=== PATIENT | female | born 1940 | race Caucasian/White ===

== ENCOUNTER 2017-04-10 13:18 | Outpatient (CLI) | payer MEDICARE, OTHER | END 2017-04-10 13:19 | disposition home or self-care (01) | LOC: RT 13:18 | PROVIDERS: ATTEND Internal Medicine | DX: R09.02 Hypoxemia (principal) | CPT/HCPCS: 94010; 94729 ==

== ENCOUNTER 2017-05-29 10:54 | Outpatient (CLI) | payer MEDICARE, OTHER ==
--- NOTE | 2017-05-29 14:12 | XRAY Report ---
TWO VIEW CHEST: 05/29/2017 CLINICAL INDICATION: Cough, wheezing. FINDINGS: Frontal and lateral views of the chest demonstrate a normal cardiac silhouette. There is a left basilar infiltrate present. No effusion or pneumothorax is evident. IMPRESSION: LEFT BASILAR INFILTRATE. TD: 05/29/2017 14:11
== END 2017-05-29 10:55 | disposition home or self-care (01) ==
LOC: DI.S 10:54
PROVIDERS: ATTEND Nurse Practitioner Family
DX: R91.8 Other nonspecific abnormal finding of lung field (principal)
CPT/HCPCS: 71046

== ENCOUNTER 2017-06-19 10:16 | Outpatient (CLI) | payer MEDICARE, OTHER ==
--- NOTE | 2017-06-19 12:51 | XRAY Report ---
TWO VIEW CHEST: 06/19/2017 CLINICAL INDICATION: Followup infiltrate. COMPARISON: 05/29/2017. FINDINGS: Frontal and lateral views of the chest demonstrate a normal cardiac silhouette. Left basilar airspace disease has resolved, with minimal linear atelectasis or scarring now present. No effusion or pneumothorax is seen. IMPRESSION: RESIDUAL LINEAR ATELECTASIS OR SCARRING AT THE LEFT BASE. RESOLUTION OF PREVIOUSLY SEEN INFILTRATE. TD: 06/19/2017 12:51
== END 2017-06-19 10:17 | disposition home or self-care (01) ==
LOC: DI.S 10:16
PROVIDERS: ATTEND Nurse Practitioner Family
DX: R05 Cough (principal); R06.02 Shortness of breath
CPT/HCPCS: 71046

== ENCOUNTER 2018-06-21 11:19 | Outpatient (CLI) | payer MEDICARE, OTHER | END 2018-06-21 11:20 | disposition home or self-care (01) | LOC: DI 11:19 | PROVIDERS: ATTEND Internal Medicine | DX: Z12.31 Encounter for screening mammogram for malignant neoplasm of breast (principal) | CPT/HCPCS: 77063; 77067 ==

== ENCOUNTER 2019-04-07 08:23 | Outpatient (CLI) | payer MEDICARE, OTHER ==
[2019-04-07 10:29] LABS: ALBUMIN 4.3 g/dL (3.2-5.5); ALBUMIN/GLOBULIN RATIO 1.4 (1.0-2.2); ALKALINE PHOSPHATASE 51 IU/L (42-121); ALT ALANINE AMINOTRANSFERASE 21 IU/L (10-60); AST ASPARTATE AMINOTRANSFERASE 25 IU/L (10-42); BILIRUBIN,TOTAL 0.9 mg/dL (0.2-1.0); BUN - BLOOD UREA NITROGEN 18 mg/dL (6-20); CALCIUM 9.6 mg/dL (8.5-10.3); CARBON DIOXIDE - CO2 29 mmol/L (21-32); CHLORIDE 99 mmol/L (101-111); CHOL/HDL RATIO 4.2 (<4.4); CHOLESTEROL 269 mg/dL; CREATININE 0.8 mg/dL (0.4-1.0); GFR - MDRD 70 (>89); GLUCOSE 96 mg/dL (70-100); HDL CHOLESTEROL 64 mg/dL; LDL CHOLESTEROL,CALCULATED 180 mg/dL; LDL CHOLESTEROL,DIRECT 183 mg/dL; LDL/HDL RATIO 2.8 (<4.4); SODIUM 138 mmol/L (135-145); TOTAL PROTEIN 7.3 g/dL (6.7-8.2); VLDL CHOLESTEROL 25 mg/dL
== END 2019-04-07 08:24 | disposition home or self-care (01) ==
LOC: LAB.S 08:23
PROVIDERS: ATTEND Registered Nurse
DX: I10 Essential (primary) hypertension (principal); E78.00 Pure hypercholesterolemia, unspecified
CPT/HCPCS: 36415; 80053; 80061; 83721

== ENCOUNTER 2019-09-21 14:58 | Outpatient (CLI) | payer MEDICARE, OTHER ==
--- NOTE | 2019-09-22 11:39 | Mammography Report ---
BILATERAL DIGITAL SCREENING MAMMOGRAM 3D/2D: 09/21/2019 CLINICAL: Routine screening. Comparison is made to exams dated: 06/21/2018 mammogram and 01/15/2015 mammogram - [facility]. There are scattered fibroglandular elements in both breasts. No significant masses, calcifications, or other findings are seen in either breast. There has been no significant interval change. IMPRESSION: NEGATIVE There is no mammographic evidence of malignancy. A 1 year screening mammogram is recommended. This exam was interpreted at Station ID: [id number]. NOTE: For mammograms, a report in lay terms will be sent to the patient. Approximately 15% of breast malignancies will not be visualized mammographically. In the management of a palpable breast mass, a negative mammogram must not discourage biopsy of a clinically suspicious lesion. Electronically Signed By: Usman Kenyon M.D. aty/penrad:09/21/2019 18:02:50 ACR BI-RADS Category 1: Negative 3341F PARENCHYMAL PATTERN: (A) - The breast(s) demonstrate(s) scattered fibroglandular densities. BI-RADS CATEGORY: (1) - 1 RECOMMENDATION: (ANNUAL) - Recommend routine annual screening mammography. [id number] 1 year screening LATERALITY: (B)
== END 2019-09-21 14:59 | disposition home or self-care (01) ==
LOC: DI 14:58
DX: Z12.31 Encounter for screening mammogram for malignant neoplasm of breast (principal)
CPT/HCPCS: 77063; 77067

== ENCOUNTER 2019-10-20 09:33 | Day surgery (SDC) | payer MEDICARE, OTHER ==
[2019-10-20] MEDS ORDERED: LACTATED RINGERS 1,000 ML IV ONE (09:39)
[2019-10-20] MEDS ORDERED: fentaNYL 250 MCG/5 ML VIAL IVP ONE (11:06)
[2019-10-20] MEDS ORDERED: ONDANSETRON 4 MG/2 ML VIAL IVP ONE (11:06)
[2019-10-20] MEDS ORDERED: MIDAZOLAM 2 MG/2 ML VIAL IVP ONE (11:06)
[2019-10-20] MEDS ORDERED: LACTATED RINGERS 500 ML IV ONE ×2 (11:35)
[2019-10-20 12:08] VITALS: BP 115/78
== END 2019-10-20 09:34 | disposition home or self-care (01) ==
LOC: SDS 09:33
PROVIDERS: ATTEND Surgery
DX: Z12.11 Encounter for screening for malignant neoplasm of colon (principal); Z80.0 Family history of malignant neoplasm of digestive organs; Z86.010 Personal history of colon polyps; K64.8 Other hemorrhoids; K57.30 Diverticulosis of large intestine without perforation or abscess without bleeding; Q43.8 Other specified congenital malformations of intestine; K64.4 Residual hemorrhoidal skin tags; I10 Essential (primary) hypertension
CPT/HCPCS: G0105; J3010; J7120

== ENCOUNTER 2020-09-27 11:03 | Outpatient (CLI) | payer MEDICARE, OTHER ==
--- NOTE | 2020-09-27 15:58 | DEXA Report ---
PROCEDURE: Dexa Spine and/or Hip INDICATIONS: ASYMPTOMATIC MENOPAUSAL STATE TECHNIQUE: Dual energy x-ray absorptiometry (DXA) was performed on a GreenDot Trans System. Regions measur ed are the AP Spine, femoral neck, and if needed forearm. 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 COMPARISON: None. FINDINGS: Lumbar Spine: Bone Mineral Density 1.2 g/cm/cm,T score 0.2, normal Left forearm: Bone Mineral Density 0.482 g/cm/cm, T score -3.2, osteoporosis (T score greater or equal to -1.0: NORMAL) (T score from -1.1 to -2.4: OSTEOPENIA) (T score less than or equal to -2.5 to: OSTEOPOROSIS) Impression: Osteoporosis within the forearm. Patients with diagnosis of osteoporosis or osteopenia should have regular bone mineral density assess ment. For those eligible for Medicare, routine testing is allowed once every 2 years. Testing frequ ency can be increased for patients who have rapidly progressing disease or for those who are receivin g medical therapy to restore bone mass. Reviewed by: Autumn Moreno MD on 09/27/2020 3:57 PM PDT Approved by: Autumn Moreno MD on 09/27/2020 3:57 PM PDT Station ID: [id number]
== END 2020-09-27 11:04 | disposition home or self-care (01) ==
LOC: DI 11:03
PROVIDERS: ATTEND Registered Nurse
DX: M81.0 Age-related osteoporosis without current pathological fracture (principal); Z96.643 Presence of artificial hip joint, bilateral

== ENCOUNTER 2021-11-18 14:04 | Outpatient (CLI) | payer MEDICARE, OTHER ==
--- NOTE | 2021-11-19 10:20 | Mammography Report ---
BILATERAL DIGITAL SCREENING MAMMOGRAM 3D/2D: 11/18/2021 CLINICAL: Routine screening. Comparison is made to exams dated: 06/21/2018 mammogram, 09/21/2019 mammogram, and 01/15/2015 mammogram - [facility]. There are scattered areas of fibroglandular density in both breasts (category b / 25%-50% glandular t issue). No significant masses, calcifications, or other findings are seen in either breast. There has been no significant interval change. IMPRESSION: NEGATIVE There is no mammographic evidence of malignancy. A 1 year screening mammogram is recommended. Based on the Tyrer Cuzick model (a risk assessment model) the patients lifetime risk is 2.9% and her 10 year risk is 0.0%. According to the ACR, ACS, and NCCN guidelines, an annual breast MRI exam mitzy g with mammogram is recommended if the patients lifetime risk is 20% or greater. This exam was interpreted at Station ID: [id number]. NOTE: For mammograms, a report in lay terms will be sent to the patient. Approximately 15% of breast malignancies will not be visualized mammographically. In the management of a palpable breast mass, a negative mammogram must not discourage biopsy of a clinically suspicious lesion. Electronically Signed By: John Albright acr/selvin:11/18/2021 16:55:03 ACR BI-RADS Category 1: Negative 3341F PARENCHYMAL PATTERN: (A) - The breast(s) demonstrate(s) scattered fibroglandular densities. BI-RADS CATEGORY: (1) - 1 RECOMMENDATION: (ANNUAL) - Recommend routine annual screening mammography. [id number] 1 year screening LATERALITY: (B)
== END 2021-11-18 14:05 | disposition home or self-care (01) ==
LOC: DI.S 14:04
PROVIDERS: ATTEND Registered Nurse
DX: Z12.31 Encounter for screening mammogram for malignant neoplasm of breast (principal)

== ENCOUNTER 2021-12-02 14:27 | Outpatient (CLI) | payer MEDICARE, OTHER ==
[~2021-12-02 14:27] MED LIST: GADOBUTROL 7.5 MMOL/7.5 ML VIAL ONE
--- NOTE | 2021-12-02 16:26 | MRI Report ---
PROCEDURE: IACS W/WO INDICATIONS: ASYMMETRICAL SENSORINEERAL HEARING LOSS CONTRAST: IV CONTRAST: Gadavist ml: 6.8 TECHNIQUE: Noncontrast sagittal T1 spin echo, axial FLAIR, axial gradient echo, axial diffusion and ADC through the brain. Axial thin-slice 3D CISS, coronal balanced GE, axial T1 spin echo with fat saturation thr ough the internal auditory canals. After the administration of contrast, thin slice axial and messina l T1 spin echo with fat saturation through the internal auditory canals, and axial T1 spin echo with fat saturation through the brain. COMPARISON: None. FINDINGS: Image quality: Excellent. No cerebellopontine angle masses. Inner ear structures appear normally formed. Visualized cranial ne rves demonstrate no abnormal signal mass lesion or enhancement. The ventricular system and cortical sulci demonstrate atrophy, consistent for patient's stated age. There are areas of hyperintense T2/FLAIR signal in the periventricular and subcortical white matter. There is no acute intra or extra-axial fluid collection. No acute hemorrhage, mass lesion or midlin e shift. Brainstem is unremarkable. There are no areas of restricted diffusion. Globes are symmetr ical. Osseous structures are intact. IMPRESSION: 1. No acute intracranial process. 2. Mild to moderate atrophy and chronic microvascular ischemic changes. 3. Cerebellopontine angles demonstrate no mass lesion. Visualized cranial nerves demonstrate no abnor mal signal, mass lesion or enhancement. Reviewed by: Autumn Moreno MD on 12/02/2021 4:24 PM PDT Approved by: Autumn Moreno MD on 12/02/2021 4:24 PM PDT Station ID: [id number]
[2021-12-02] MEDS ORDERED: GADOBUTROL 7.5 MMOL/7.5 ML VIAL IVP ONE (17:46)
== END 2021-12-02 14:28 | disposition home or self-care (01) ==
LOC: DI 14:27
PROVIDERS: ATTEND Otolaryngology
DX: H90.3 Sensorineural hearing loss, bilateral (principal); G31.89 Other specified degenerative diseases of nervous system; I67.82 Cerebral ischemia
CPT/HCPCS: 70553; A9585

== ENCOUNTER 2022-06-01 13:02 | Outpatient (CLI) | payer MEDICARE, OTHER | END 2022-06-01 23:59 | disposition critical access hospital (66) | LOC: EMS 13:02 | DX: R53.1 Weakness (principal); R42 Dizziness and giddiness; R11.2 Nausea with vomiting, unspecified; R00.1 Bradycardia, unspecified | CPT/HCPCS: A0425; A0427 ==

== ENCOUNTER 2022-06-01 13:30 | Inpatient (IN) | payer MEDICARE, OTHER ==
--- NOTE | 2022-06-01 13:39 | ED Physician Documentation ---
PD HPI FOCAL NEURO - Stated complaint Stated Complaint: L SIDED WEAKNESS - History obtained from History obtained from: Patient, EMS - Additional information Additional information: 81-year-old woman with history of hypertension and Mnire's disease was in her usual state of health when she developed left-sided weakness today at 12 PM. Subsequently she developed vertigo much more severe than any previous vertigo that she has had, although she has had vertigo in the past and then became very nauseous. She denies diplopia or numbness. On the way here she reportedly had a 3-second sinus pause on the monitor and then subsequently was bradycardic into the 20s which resolved with atropine. PD PAST MEDICAL HISTORY - Past Medical History Cardiovascular: Hypertension, High cholesterol HEENT: Other - Past Surgical History Ortho: Hip replacement /[employer]: Hysterectomy HEENT: Cataracts - Present Medications Home Medications: Ambulatory Orders Medication Instructions Recorded Confirmed Ascorbic Acid [Vitamin C] 1,000 mg PO DAILY 10/19/19 10/20/19 Bisoprolol/Hydrochlorothiazide 1 each PO DAILY 10/19/19 10/20/19 [Bisoprolol-Hctz 2.5-6.25 mg Tb] Cholecalciferol (Vitamin D3) 2,000 10/19/19 [Vitamin D3] Multivitamin [Multiple Vitamins] 1 each PO DAILY 10/19/19 10/20/19 Rosuvastatin Calcium 20 mg PO DAILY 10/19/19 10/20/19 hydroCHLOROthiazide 12.5 mg PO DAILY 10/19/19 10/20/19 [Hydrochlorothiazide] - Allergies Allergies/Adverse Reactions: Allergies Allergy/AdvReac Type Severity Reaction Status Date / Time No Known Drug Allergies Allergy Verified 06/01/22 13:46 PD ED PE NORMAL - Vitals Vital signs reviewed: Yes - General General: Alert and oriented X 3, Other (She appears uncomfortable preferring to keep her eyes closed.) - HEENT HEENT: Other (She has small pupils and seems to have difficulty with Superior movement of the right eye. That said she does not have diplopia on upward gaze.) - Neck Neck: Supple, no meningeal sign, No bony TTP - Cardiac Cardiac: RRR, No murmur - Respiratory Respiratory: No respiratory distress, Clear bilaterally - Abdomen Abdomen: Normal bowel sounds, Soft, Non tender - Neuro Neuro: Alert and oriented X 3, No motor deficit, No sensory deficit, Normal speech Eye Opening: Spontaneous Motor: Obeys Commands Verbal: Oriented GCS Score: 15 NIHSS - Time Time: 13:34 - Level of Consciousness Level of consciousness: (0) Alert, Keenly responsive LOC Questions: (0) Answers both Q's correct LOC Commands: (0) Performs both correctly - Gaze Best Gaze: (0) Normal - Visual Visual: (0) No loss - Facial Palsy Facial Palsy: (0) Normal, symmetrical movement - Motor Arms (both separate) Motor Arm (right): (0) No drift Motor Arm (left): (0) No drift - Motor Legs (both separate) Motor Leg (right): (0) No drift Motor Leg (left): (0) No drift - Limb Ataxia Limb Ataxia: (0) Absent - Sensory Sensory: (0) Normal - Best Language Best Language: (0) No aphasia - Dysarthria Dysarthria: (0) Normal - Extinction and Inattention (formally neg Extinction and inattention: (0) No abnormality - Total Score/Results Total Score/Result: 0 Results - Vitals Vitals: Vital Signs - 24 hr 06/01/22 13:42 Temperature 35.9 C L Heart Rate 93 Respiratory 18 Rate Blood Pressure 104/74 O2 Saturation 96 Oxygen O2 Source Room air - EKG (time done) 1351 EKG releavant findings:: EKG personally interpreted by author of this note. Relevant findings are: Rate: Rate (enter#) (89) Rhythm: NSR [place]: Normal Intervals: Normal MA QRS: Normal Ischemia: Non specific changes (Flat inferior and lateral T waves) Computer interpretation: Agree with computer - Labs Labs: Laboratory Tests 06/01/22 06/01/22 06/01/22 13:56 13:56 13:56 WBC 5.9 RBC 4.12 L Hgb 12.9 Hct 39.6 MCV 96.1 MCH 31.3 H MCHC 32.6 RDW 12.9 Plt Count 209 MPV 9.6 Neut # (Auto) 4.7 Lymph # (Auto) 0.9 L [place] # (Auto) 0.3 Eos # (Auto) 0.0 Baso # (Auto) 0.0 Absolute Nucleated RBC 0.00 Nucleated RBC % 0.0 PT 11.8 INR 1.0 Sodium 133 L Potassium 3.6 Chloride 99 L Carbon Dioxide 25 Anion Gap 9.0 BUN 19 Creatinine 0.8 Estimated GFR (MDRD) 69 L Glucose 140 H Calcium 9.5 Total Bilirubin 0.5 AST 26 ALT 20 Alkaline Phosphatase 40 L Total Protein 6.5 L Albumin 3.9 Globulin 2.6 Albumin/Globulin Ratio 1.5 Lipase 40 - Rads (name of study) Noncontrast CT of the head was negative Relevant Findings:: Final report received, EMP independent interpretation of test CT angiography of the neck is negative Relevant Findings:: Final report received, EMP independent interpretation of test CT angiography of the head is unremarkable without arterial abnormality Relevant Findings:: Final report received, EMP independent interpretation of test PD Medical Decision Making - ED course ED course: 81-year-old woman presents with severe vertigo, some abnormal cranial nerve findings and left-sided weakness that we could not corroborate on exam. After initial evaluation she went directly over to CT for plain and angiography studies which were negative. We also paged our telestroke neurologist who did not feel that she was a tPA candidate. On reevaluation shortly after CT her symptoms had completely resolved. She did have significant bradycardia prior to arrival, the differential there could be brainstem TIA causing autonomic instability versus vasovagal episode as she was quite nauseous and vomiting at the time. She received 324 mg of aspirin here and will be placed in observation for cardiac monitoring and possibly MRI. Spoke with Dr. Costa for observation at 2:25 PM. Departure - Departure Disposition: ED Place in Observation Clinical Impression: TIA (transient ischemic attack) Condition: Stable
--- NOTE | 2022-06-01 13:59 | CT Report ---
PROCEDURE: Head W/O Stroke Protocol INDICATIONS: Neuro deficit, acute, stroke suspected TECHNIQUE: Noncontrast 4.5 mm thick angled axial sections acquired from the foramen magnum to the vertex, with c oronal reformats. For radiation dose reduction, the following was used: automated exposure control, adjustment of mA and/or kV according to patient size. COMPARISON: FINDINGS: Image quality: Excellent. CSF spaces: Basal cisterns are patent. No extra-axial fluid collections. Ventricles are normal in size and shape. Brain: No midline shift. No intracranial masses or hemorrhage. [place]-white matter interface is norm al. Skull and face: Calvarium and visualized facial bones are intact, without suspicious lesions. Sinuses: Visualized sinuses and mastoids are clear. IMPRESSION: No acute intracranial abnormality. Findings discussed with referring clinician on 023 at 1357 hours. This study fulfills neurological imaging criteria for inclusion or exclusion of acute stroke therapie s based on available published neurological imaging guidelines. Reviewed by: Roberto Miller MD on 06/01/2022 1:57 PM PDT Approved by: Roberto Miller MD on 06/01/2022 1:57 PM PDT Station ID: [id number]
--- NOTE | 2022-06-01 14:01 | CT Report ---
PROCEDURE: ANGIO NECK W INDICATIONS: stroke sx CONTRAST: 80ml omni 300 TECHNIQUE: After the administration of intravenous contrast, 1.5 mm axial sections acquired from the aortic arch to the [place] of [place]. Coronal 3-D maximum intensity projection (MIP) and/or volume rendering ref ormats were then performed. For radiation dose reduction, the following was used: automated exposur e control, adjustment of mA and/or kV according to patient size. COMPARISON: None. FINDINGS: Image quality: Excellent. Carotid system: The great vessels demonstrate a conventional anatomy as they arise from the aortic a rch. The origins of the common carotid arteries appear patent. The common carotid arteries demonstr ate normal calibers and courses. The bifurcation regions appear normal bilaterally. The internal ca rotid arteries demonstrate normal caliber and course. Posterior circulation: The origins of the vertebral arteries appear patent. The more superior porti ons of the vertebral arteries demonstrate normal course and caliber. They join to form a normal appe aring basilar artery. Soft tissues: Visualized neck soft tissues demonstrate no suspicious abnormalities. The thyroid is normal in size and there are no incidental findings. Bones: No suspicious bony lesions. Visualized cervical spine appears normally aligned. IMPRESSION: No acute process involving the arterial tree of the neck. The estimate of stenosis included in the report of the imaging study was calculated using the NASCET method CLINICAL RECOMMENDATION STATEMENTS: In patients <35 years with an ITN detected on CT, MRI, or extrathyroidal ultrasound, the Committee re commends further evaluation with dedicated thyroid ultrasound if the nodule is "e1 cm and has no susp icious imaging features, and if the patient has normal life expectancy. In patients "e35 years with an ITN detected on CT, MRI, or extrathyroidal ultrasound, the Committee r ecommends further evaluation with dedicated thyroid ultrasound if the nodule is "e1.5 cm and has no s uspicious imaging features, and if the patient has normal life expectancy. (ACR, 2014) Reviewed by: Roberto Miller MD on 06/01/2022 1:59 PM PDT Approved by: Roberto Miller MD on 06/01/2022 1:59 PM PDT Station ID: [id number]
[2022-06-01 14:03] LABS: BASOPHILS % (AUTO) 0.3 %; EOSINOPHILS % (AUTO) 0.5 %; HCT - HEMATOCRIT 39.6 % (37.0-47.0); HGB - HEMOGLOBIN 12.9 g/dL (12.0-16.0); LYMPHOCYTES # (AUTO) 0.9 10^3/uL (1.5-3.5); LYMPHOCYTES % (AUTO) 14.5 %; MEAN CORPUSCULAR HEMOGLOBIN 31.3 pg (27.0-31.0); MEAN CORPUSCULAR HGB CONC 32.6 g/dL (32.0-36.0); MEAN CORPUSCULAR VOLUME 96.1 fL (81.0-99.0); MEAN PLATELET VOLUME 9.6 fL (7.9-10.8); MONOCYTES # (AUTO) 0.3 10^3/uL (0.0-1.0); MONOCYTES % (AUTO) 4.9 %; NEUTROPHILS # (AUTO) 4.7 10^3/uL (1.5-6.6); NEUTROPHILS % (AUTO) 79.6 %; PLT - PLATELET COUNT 209 10^3/uL (130-450); RED BLOOD COUNT 4.12 10^6/uL (4.20-5.40); RED CELL DISTRIBUTION WIDTH 12.9 % (12.0-15.0); WHITE BLOOD COUNT 5.9 x10^3/uL (4.8-10.8)
--- NOTE | 2022-06-01 14:07 | CT Report ---
PROCEDURE: ANGIO HEAD W/WO INDICATIONS: stroke sx CONTRAST: 80ml omni 300 TECHNIQUE: Precontrast 4.5 mm thick angled axial sections acquired from the foramen magnum to the vertex. Afte r the administration of intravenous contrast, 1 mm thick sections acquired through the [place] of [place] is. Postcontrast 4.5 mm thick sections then re-acquired from the foramen magnum to the vertex. 3-di mensional [id number] (MIP) and/or volume rendering reformats were acquired of the c entral intracranial vasculature. For radiation dose reduction, the following was used: automated ex posure control, adjustment of mA and/or kV according to patient size. COMPARISON: None FINDINGS: Image quality: Excellent. Anterior circulation: Intracranial internal carotid arteries are normal in size and flow. The flow within the paired anterior cerebral arteries is normal and symmetric. The flow within the middle cer ebral arteries is normal and symmetric. The anterior communicating artery is seen. No aneurysms are seen. Posterior circulation: Visualized portions of the vertebral arteries demonstrate normal caliber, and join to form a normal appearing basilar artery. Flow within the posterior cerebral arteries is norm al and symmetric. No aneurysms are seen. CSF spaces: Ventricles are normal in size and shape. Basal cisterns are patent. No extra-axial flu id collections. Brain: No midline shift. No intracranial bleeds or masses. [place] C[place]-white matter interface appears int act. Skull and face: Calvarium and facial bones appear intact, without suspicious lesions. Sinuses: Visualized sinuses and mastoids are clear. IMPRESSION: No acute process involving the arterial tree of the head. Reviewed by: Roberto Millre MD on 06/01/2022 2:06 PM PDT Approved by: Roberto Miller MD on 06/01/2022 2:06 PM PDT Station ID: [id number]
[2022-06-01 14:10] LABS: PT - PROTHROMBIN TIME 11.8 secs (9.9-12.6)
[2022-06-01 14:16] LABS: ALBUMIN 3.9 g/dL (3.2-5.5); ALBUMIN/GLOBULIN RATIO 1.5 (1.0-2.2); BILIRUBIN,TOTAL 0.5 mg/dL (0.2-1.0); CALCIUM 9.5 mg/dL (8.5-10.3); CREATININE 0.8 mg/dL (0.4-1.0); POTASSIUM 3.6 mmol/L (3.5-5.0); TOTAL PROTEIN 6.5 g/dL (6.7-8.2)
[2022-06-01] MEDS ORDERED: ASPIRIN CHEW 81 MG TABLET PO STA (14:26)
[2022-06-01] MEDS ORDERED: ONDANSETRON 4 MG/2 ML VIAL IVP PRN (14:38)
[2022-06-01] MEDS ORDERED: PROCHLORPERAZINE 10 MG/2 ML VIAL IVP PRN (14:38)
[2022-06-01] MEDS ORDERED: IOVERSOL 320 100 ML VIAL IVP ONE (14:39)
[2022-06-01] MEDS ORDERED: iohexoL-300 100 ML VIAL IV ONE (14:39)
[2022-06-01] MEDS: SODIUM CHLORIDE FLUSH 0.9% 10 ML SYRINGE IVP SCH (15:57)
[2022-06-01] MEDS ORDERED: iohexoL-300 100 ML VIAL ONE (18:54)
--- NOTE | 2022-06-01 18:55 | HISTORY & PHYSICAL EXAMINATION ---
Chief Complaint - Chief Complaint Chief Complaint: Left side weak, vertigo, nausea & vomiting History of Present Illness - Admitted From Admitted From:: ED - History Obtained From History obtained from: ED provider and the patient - History of Present Illness HPI Comment/Other: This is a 81-year-old white female with a history of Mnire's disease, hypertension who lives at home. Today at about noon she developed sudden left sided leg then arm weakness and then had vertigo and nausea vomiting. An ambulance was called. Her glucose was normal in the ambulance and her blood pressure was stable. While she was vomiting en route, paramedics noted she had a 3-second pause then was bradycardic with heart rates in the 20s. She was given Atropine. Her heart rate recovered into normal range. Upon presentation to the ER she had resolved the left-sided weakness but still had trouble with superior gaze with the right eye. She underwent a CT head and CTA head and neck, and these were unremarkable. A Telestroke conference was done but her symptoms had entirely resolved. The Telestroke neurologist recommended that she be monitored, placed on telemetry, have an MRI scan, continue with aspirin and she was not a tPA candidate. The patient reports that the vertigo and nausea and vomiting were similar to what she gets with her Mnire's disease attacks but she has never had left arm and leg weakness. She denies ever having syncope. She is not sure if she had brief syncope in the ambulance. We discussed her CODE BLUE wishes and she wants to be a Full Code. 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 She never smoked cig arettes, uses no marijuana, has 1 glass of alcohol every night, never more she says. She has never gone through withdrawal. Meds/Allgy - Home Medications Home Medications: Ambulatory Orders Medication Instructions Recorded Confirmed Ascorbic Acid [Vitamin C] 1,000 mg PO DAILY 10/19/19 10/20/19 Bisoprolol/Hydrochlorothiazide 1 each PO DAILY 10/19/19 10/20/19 [Bisoprolol-Hctz 2.5-6.25 mg Tb] Cholecalciferol (Vitamin D3) 2,000 10/19/19 [Vitamin D3] Multivitamin [Multiple Vitamins] 1 each PO DAILY 10/19/19 10/20/19 Rosuvastatin Calcium 20 mg PO DAILY 10/19/19 10/20/19 hydroCHLOROthiazide 12.5 mg PO DAILY 10/19/19 10/20/19 [Hydrochlorothiazide] - Allergies Allergies/Adverse Reactions: Allergies Allergy/AdvReac Type Severity Reaction Status Date / Time No Known Drug Allergies Allergy Verified 06/01/22 13:46 Review of Systems - Gastrointestinal Gastrointestinal: reports: Other (To have nausea and vomiting for her is normal when she gets vertigo and Mnire's attacks) - Neurological Neurological: reports: Other (Her Mnire's disease includes vertigo and nausea with vomiting) - All Other Systems All Other Systems: reports: Reviewed and negative Exam - Vital Signs Vital Signs: Vital Signs x48h Temp Pulse Pulse Resp BP BP Pulse Ox 06/01/22 17:00 78 20 124/70 95 06/01/22 15:55 36.5 C 83 16 119/58 L 96 06/01/22 13:42 35.9 C L 93 18 104/74 96 - Physical Exam General Appearance: positive: No acute distress, Alert Eyes Bilateral: positive: No scleral icterus, Other (She has unequal upward mobility of her eyelids, L is slower (cranial nerve III)) ENT: positive: No signs of dehydration Neck: positive: Nml inspection, No JVD Respiratory: positive: Chest non-tender, No respiratory distress Cardiovascular: positive: Regular rate & rhythm, No murmur Abdomen: positive: Non-tender, Nml bowel sounds, No distention Skin: positive: Warm, Dry Extremities: positive: Non-tender, No pedal edema Neurologic/Psychiatric: positive: Oriented x3, Other (Abnormal upward eyelid opening of L eye (cranial nerve III). Equal arm strength and leg and foot strength) Conclusion/Plan - Problem List (1) TIA (transient ischemic attack) Conclusion/Plan: Vertigo and her vomiting may have been a brainstem TIA or may have been part of her Mnire's disease. She complained of left-sided weakness which had already resolved by the time she was here, but there was and is some left eye superior eyelid motion delay . Overall Telestroke considered this is a TIA Plan: Place the patient in Observation status, on telemetry and monitor. Do neurochecks every 4 hours Obtain an Echocardiogram to evaluate for cardiac source of embolus or PFO Brain MRI will be ordered (today is Thursday and we do not have MRI till tomorrow, Thu). She received aspirin in the ER and we will continue 1 baby aspirin daily We will check fasting lipid panel and treat per guidelines (2) Sinus pause Conclusion/Plan: She may have had autonomic dysfunction, if she had a brainstem TIA, causing this pause and bradycardia. Alternatively, she may have been vagal when she was vomiting and had this bradydysrhythmia. Plan: She will be placed on telemetry in the ICU External pacer patches will be applied and connected to the external pacer but only in a monitoring mode Avoid heart rate slowing meds Plan to get an Echocardiogram to evaluate cardiac structures, both for this bradycardia arrhythmia as well as because of her TIA, to look for source of embolus. (3) Bradycardia Conclusion/Plan: As in #2 (4) HTN (hypertension) Conclusion/Plan: Plan: Currently her blood pressure is normal. We will allow "permissive hypertension" temp[orarily, following this neurologic event Will restart appropriate cardiac meds once her med list is reconciled by pharmacy (5) Mnire's disease Conclusion/Plan: Because of this history, it is not clear if her vertigo with nausea and vomiting were part of the neurologic deficit or a Mnire's attack Plan: If she is on any meds for Mnire's, these will be resumed, once her medication list is recons filed by pharmacy (6) Hyponatremia Conclusion/Plan: She has mild hyponatremia with a serum sodium of 133, from my lab review This is probably from taking bisoprolol which HCTZ and a separate tablet of HCTZ (according to her med list, however the med list has not yet been reconciled). Plan: Because she has no need for BP meds currently, with a normal blood pressure we will not be giving her HCTZ or her bisoprolol-HCTZ Follow serum sodium daily - Lab Results Fish Bones: 06/01/22 13:56 06/02/22 04:44 - Diagnostic Imaging Results Diagnostic Imaging Results: positive: Final report reviewed
[2022-06-01] MEDS: SODIUM CHLORIDE FLUSH 0.9% 10 ML SYRINGE IVP PRN (21:10)
[2022-06-01] MEDS: FAMOTIDINE 20 MG TABLET PO SCH (21:10)
[2022-06-02] MEDS: SODIUM CHLORIDE FLUSH 0.9% 10 ML SYRINGE IVP SCH ×3 (00:07→18:08)
[2022-06-02 05:24] LABS: CALCIUM 9.1 mg/dL (8.5-10.3); CREATININE 0.8 mg/dL (0.4-1.0); POTASSIUM 3.7 mmol/L (3.5-5.0)
[2022-06-02 05:28] LABS: CALCIUM, IONIZED 1.11 mmol/L (1.15-1.33); VBG PH 7.437 (7.31-7.41)
[2022-06-02 05:29] LABS: CHOL/HDL RATIO 2.1 (<4.4); CHOLESTEROL 126 mg/dL; HDL CHOLESTEROL 59 mg/dL; LDL CHOLESTEROL,CALCULATED 55 mg/dL; LDL/HDL RATIO 0.9 (<4.4); PHOSPHORUS 3.5 mg/dL (2.5-4.6); TRIGLYCERIDES 58 mg/dL; VLDL CHOLESTEROL 12 mg/dL
[2022-06-02] MEDS ORDERED: POTASSIUM CHLORIDE 20 MEQ TABLET PO ONE (08:00)
[2022-06-02] MEDS: ASPIRIN EC 81 MG TABLET PO SCH (08:23)
[2022-06-02] MEDS: FAMOTIDINE 20 MG TABLET PO SCH ×2 (08:24→20:18)
[2022-06-02] MEDS: SODIUM CHLORIDE FLUSH 0.9% 10 ML SYRINGE IVP PRN ×2 (08:26→20:23)
[2022-06-02] MEDS ORDERED: MECLIZINE 12.5 MG TABLET PO PRN (09:23)
[2022-06-02] MEDS ORDERED: ACETAMINOPHEN 325 MG TABLET PO PRN (09:23)
--- NOTE | 2022-06-02 11:02 | PHARMACY PROGRESS NOTE ---
- Best Possible Medication History Admit Date and Time: 06/01/22 1438 Processed by: Pharmacy Medication History completed: Yes Patient Interview: Completed Secondary Source(s): Written medication list, Pharmacy records As the person ultimately responsible for medication therapy, providers are able to order a medication from an existing home medication list in [facility] via the "Reconcile Routine" prior to Confirmation of that medication by web support engineer. Such practice is discouraged except when the physician, in their clinical judgment, deems that a medical need exists for a medication without regard to previous use.
--- NOTE | 2022-06-02 13:45 | MRI Report ---
PROCEDURE: BRAIN WO INDICATIONS: TIA TECHNIQUE: Noncontrast axial T1 spin echo, axial T2 fast spin echo, sagittal and axial FLAIR, coronal T2 fast sp in echo, axial gradient echo, axial diffusion and ADC through the brain. COMPARISON: None. FINDINGS: Image quality: Excellent. CSF Spaces: Basal cisterns are patent. No extra-axial fluid collections. Ventricles are normal in size and shape. Brain: No intracranial masses or hemorrhage. Mild diffuse cerebral volume loss. Mild degree of patc hy high FLAIR signal within the periventricular and subcortical white matter. Del Cid/white matter inter face is normal. Brainstem appears normal. Diffusion-weighted images demonstrate an ill-defined yaritza on of elevated signal intensity within the left anterior cerebellar hemisphere spanning roughly 30 mm transverse. This region demonstrates mild FLAIR signal elevation. Normal intravascular flow voids ar e present. Skull and face: Calvarium has normal marrow signal. Orbits appear normal. Sinuses: Sinuses and mastoids are clear. IMPRESSION: 1. Subacute left cerebellar infarct. 2. Volume loss and small vessel ischemic disease. Reviewed by: Roberto Miller MD on 06/02/2022 12:38 PM PDT Approved by: Roberto Miller MD on 06/02/2022 12:38 PM PDT Station ID: [id number]
--- NOTE | 2022-06-02 14:42 | PROVIDER PROGRESS NOTE ---
Subjective - Subjective Pt reports feeling: No change (Still had nausea with retching this morning, needed Compazine and Reglan. Still had mild vertigo, needed meclizine. But she feels that her left arm and leg weakness have improved. Has not noticed that her left eye has ptosis.) Objective - Vital Signs/Intake & Output Vital Signs: Vital Signs Pulse Resp BP Pulse Ox 06/02/22 13:00 61 13 123/68 94 06/02/22 11:00 72 16 149/93 H 93 Intake & Output: Intake & Output 05/30/22 05/31/22 06/01/22 06/02/22 23:59 23:59 23:59 23:59 Intake Total 440 540 Output Total 0 0 Balance 440 540 - Objective General Appearance: positive: No acute distress, Alert, Other (She appears much younger than her stated age) Eyes Bilateral: positive: Other (Left eye ptosis) ENT: positive: ENT inspection nml, No signs of dehydration Neck: positive: Nml inspection, No JVD Respiratory: positive: No respiratory distress, Breath sounds nml Cardiovascular: positive: Regular rate & rhythm, No murmur Abdomen: positive: Non-tender, Nml bowel sounds, No distention Skin: positive: Warm, Dry Extremities: positive: Non-tender, No pedal edema Neurologic/Psychiatric: positive: Oriented x3, Other (Equal arm and leg strength bilaterally, has left eye ptosis) - Lab Results Fish Bones: 06/01/22 13:56 06/02/22 04:44 Other Labs: Lab Results x24hrs 06/02/22 06/02/22 06/02/22 Range/Units 04:44 04:44 04:44 VBG pH 7.437 H (7.31-7.41) Ionized Calcium 1.11 L (1.15-1.33) mmol/L Sodium 134 L (135-145) mmol/L Potassium 3.7 (3.5-5.0) mmol/L Chloride 100 L (101-111) mmol/L Carbon Dioxide 25 (21-32) mmol/L Anion Gap 9.0 (6-13) BUN 17 (6-20) mg/dL Creatinine 0.8 (0.4-1.0) mg/dL Estimated GFR (MDRD) 69 L (>89) Glucose 97 (70-100) mg/dL Calcium 9.1 (8.5-10.3) mg/dL Phosphorus 3.5 (2.5-4.6) mg/dL Magnesium 2.0 (1.7-2.8) mg/dL Triglycerides 58 ( - 149) mg/dL Cholesterol 126 ( - 199) mg/dL LDL Cholesterol, Calc 55 ( - 129) mg/dL VLDL Cholesterol 12 mg/dL HDL Cholesterol 59 L (60 - ) mg/dL LDL/HDL Ratio 0.9 (<4.4) Cholesterol/HDL Ratio 2.1 (<4.4) Nasal Screen MRSA (PCR) (NEGATIVE) 06/01/22 Range/Units 15:31 VBG pH (7.31-7.41) Ionized Calcium (1.15-1.33) mmol/L Sodium (135-145) mmol/L Potassium (3.5-5.0) mmol/L Chloride (101-111) mmol/L Carbon Dioxide (21-32) mmol/L Anion Gap (6-13) BUN (6-20) mg/dL Creatinine (0.4-1.0) mg/dL Estimated GFR (MDRD) (>89) Glucose (70-100) mg/dL Calcium (8.5-10.3) mg/dL Phosphorus (2.5-4.6) mg/dL Magnesium (1.7-2.8) mg/dL Triglycerides ( - 149) mg/dL Cholesterol ( - 199) mg/dL LDL Cholesterol, Calc ( - 129) mg/dL VLDL Cholesterol mg/dL HDL Cholesterol (60 - ) mg/dL LDL/HDL Ratio (<4.4) Cholesterol/HDL Ratio (<4.4) Nasal Screen MRSA (PCR) NEGATIVE (NEGATIVE) - Diagnostic Imaging Diagnostic Imaging Results: positive: Final report reviewed Assessment/Plan - Problem List (1) Cerebellar stroke Impression: The patient underwent her brain MRI today. This showed abnormality within the left anterior cerebellar hemisphere spanning 30 mm transverse and was read as a subacute left cerebellar infarct. She already had CTA head and neck showing no vascular stenoses or occlusions. Fasting lipid panel showed good control of LDL and she is already on a statin. Her vertigo, which was called Mnire's disease, could potentially have been TIAs from this cerebellar region I updated the patient, and spoke to her , who was in the room as well as 2 adult daughters and 1 granddaughter Plan: Awaiting an Echo, it was ordered to look for source of embolus or PFO (today is Thursday and we do not have echo service here except Thursday through ) Continue with daily aspirin Continue her daily statin at hs We will admit to Inpatient status for further management We will order Physical Therapy and Occupational Therapy since she may have ataxia w/ this type of stroke (2) Sinus pause Impression: She had a witnessed sinus pause of 3 seconds in the ambulance Her stroke was not in the brainstem, where that type of stroke may have caused autonomic dysfunction and marked bradycardia. This makes the likelihood of a vagal cause more likely, since she was vomiting in the ambulance at the time of the sinus pause. In addition, she is on a beta-mounika for her blood pressure control Plan: She has been in the ICU with external pacing patches on and external pacemaker at bedside, in case she needed emergent pacing for a recurrent pause. The pacer patches will be stopped. She will be moved out of the ICU to [facility] on telemetry Remain off beta-blockers. Patient should avoid being on beta-blockers for her BP control, even after discharge We are still awaiting the Echo to evaluate her cardiac anatomy I updated the patient and the family members in the room about the entire plan (3) Bradycardia Impression: After the witnessed sinus pause of 3 seconds in the ambulance, she then had bradycardia at a rate of 20. This is a patient who was vomiting and is on beta-mounika Plan: As a #2 (4) HTN (hypertension) Impression: Patient was taking bisoprolol/HCTZ and a separate tablet of HCTZ at his her blood pressure medications. Confirmed this with the patient and in the room today Her blood pressure has been normal since admission, none of her meds have been resumed here. In addition I am planning 24 to 48 hours to allow permissive hypertension, given the stroke Plan: Patient should avoid being on beta-blockers for her BP control, even after discharge, due to her sinus pause A reasonable choice for her BP med might be amlodipine for BP control, when it is needed (5) Hyponatremia Impression: Labs are all reviewed. This patient has mild hyponatremia, sodium is running 133 and 134. This is likely from being on 2 separate tablets of HCTZ Plan: No HCTZ has been used but she did not require IV saline since she was euvolemic Remain off of HCTZ and especially not to separate pills of HCTZ. I informed the patient and entire family in the room of this recommendation (6) Mnire's disease Impression: Her vertigo, which has been labelled Mnire's disease, could potentially have been TIAs from this cerebellar region She herself requested meclizine as needed before going into the MRI scanner Plan: We will continue with as needed meclizine
[2022-06-02] MEDS ORDERED: CARBOXYMETHYLCELLULOSE OPHTH DROPS EACHEYE PRN (15:17)
[2022-06-02] MEDS ORDERED: ATORVASTATIN 40 MG TABLET PO SCH (21:00)
[2022-06-03] MEDS: SODIUM CHLORIDE FLUSH 0.9% 10 ML SYRINGE IVP SCH ×2 (01:52→08:57)
[2022-06-03] MEDS: ASPIRIN EC 81 MG TABLET PO SCH (08:56)
[2022-06-03] MEDS ORDERED: CHOLECALCIFEROL 25 MCG TABLET PO SCH (09:00)
--- NOTE | 2022-06-03 11:34 | Discharge Plan ---
Discharge Plan Problem Reviewed?: Yes Disposition: Home, Self Care Condition: Stable Prescriptions: Meclizine [Antivert] 12.5 mg PO Q6HR PRN #30 tab PRN Reason: Dizziness Aspirin [[place] Aspirin] 81 mg PO DAILY #100 ea ONDANSETRON ODT Prepack 2 [ZOFRAN ODT Prepack 2] 4 mg TL Q6H #30 tablet Diet: Cardiac Activity Restrictions: Activity as Tolerated Shower Restrictions: No Driving Restrictions: No (no driving until seen by PCP or Neurology) Health Concerns: You developed sudden left-sided weakness and severe vertigo causing nausea and vomiting. This is in a person who already has Mnire's disease. Ambulance was called and when you were in the ambulance, on your way here, the nausea induced a vasovagal response with a 3-second pause of the electrical conducting system of your heart. When your heartbeat came back it was beating at 20 beats a minute. By the time you had come in, your symptoms had resolved. As such the consult with neurology stated that you did not need the blood clot busting agent for stroke. For the rest of your stay your symptoms gradually got better. You still have nausea and dizziness. But a slight facial droop has improved. Your main problem is balance deficit Plan of Treatment: When someone has a stroke, we tried to modify the risk factors for stroke. Risk factors include age, male sex, diabetes, high cholesterol, high blood pressure, and smoking as well as family history. In your case, we can only modify the sugar, blood pressure, and cholesterol with medication. As for smoking we just tell people stop smoking. In your case, you would be a candidate for: -Atorvastatin 80 mg daily for the next month. -Baby aspirin 81 mg a day Please stop the bisoprolol and HCTZ since it dehydrates you and affects sodium. You have a slow heart rate with a pause in the ambulance and bisoprolol would make that worse. Please see your primary care provider, Miriam Shrestha, in the next 1 to 2 weeks. She will help decide when it is time to cut back on your cholesterol pill or if you are going to stay on atorvastatin 80 mg a day. She will also measure your blood pressure to see if you need to go back on a different kind of blood pressure pill. While you are here your blood pressure was very good. It was in the 120s over 70s which is the goal. Physical therapy evaluated you before you left, they feel that you would be a good candidate for outpatient physical and occupational therapy. Care Goals: In the future, the goal is to reduce your risk of another stroke as much as possible. And to recover from this one so that none of your deficits are noticeable. Assessment: Patient is awake, alert, oriented, and very motivated to follow through with follow-up and treatment Follow-Up Care: Outpatient Rehab - PT, Outpatient Rehab - OT No Smoking: If you smoke, Please STOP! Call for help. Follow-up with: Gina Shrestha ARNP [Primary Care Provider] -
[2022-06-03 13:54] VITALS: BP 126/67
--- NOTE | 2022-06-03 19:28 | DISCHARGE SUMMARY ---
"Discharge Summary Admit Date: 06/01/22 Discharge Date: 06/03/22 Discharging Provider: Lynette Ramos MD Primary Care Provider: NELLI Maza Code Status: Attempt Resuscitation Condition at Discharge: Stable Discharge Disposition: 01 Home, Self Care - DIAGNOSES Discharge Diagnoses with Status of Each Condition: 1. Cerebellar stroke 2. Sinus pause 3. Bradycardia 4. Hypertension 5. Hyponatremia 6. History of Mnire's disease - HPI History of Present Illness: This is a 81-year-old white female with a history of Mnire's disease, hypertension who lives at home. Today at about noon she developed sudden left sided leg then arm weakness and then had vertigo and nausea vomiting. An ambulance was called. Her glucose was normal in the ambulance and her blood pressure was stable. While she was vomiting en route, paramedics noted she had a 3-second pause then was bradycardic with heart rates in the 20s. She was given Atropine. Her heart rate recovered into normal range. Upon presentation to the ER she had resolved the left-sided weakness but still had trouble with superior gaze with the right eye. She underwent a CT head and CTA head and neck, and these were unremarkable. A Telestroke conference was done but her symptoms had entirely resolved. The Telestroke neurologist recommended that she be monitored, placed on telemetry, have an MRI scan, continue with aspirin and she was not a tPA candidate. The patient reports that the vertigo and nausea and vomiting were similar to what she gets with her Mnire's disease attacks but she has never had left arm and leg weakness. She denies ever having syncope. She is not sure if she had brief syncope in the ambulance. We discussed her CODE BLUE wishes and she wants to be a Full Code. 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 Head CT without any midline shift, bleeds, masses. MRI has a subacute left cerebellar infarct. Echocardiogram has normal left ventricular size and function. Ejection fraction 59%. Mild diastolic dysfunction and the left atrium is mildly dilated. Mildly sclerotic aortic valve but no stenosis. Normal right ventricle size and function. Normal pulmonary pressures and no shunting by Doppler. - HOSPITAL COURSE Hospital Course: Bisoprolol and hydrochlorothiazide were withheld. In the ambulance she had sinu s pause of 3 seconds. It may have been vasovagal and that she had severe nausea and vomiting in the ambulance rig. It was followed by bradycardia and she required atropine. For the rest of her stay, telemetry showed normal sinus rhythm. Blood pressure was in the 120s over 70s. MRI confirmed cerebellar stroke. Angiogram did not show any intra cerebral or neck stenosis that was clinically significant. Echocardiogram was done on the day of discharge and did not show valvular heart disease or PFO. As such the rest of her management will be risk reduction. She is a non-smoker, not a diabetic. LDL goal will be less than 70. Blood pressure goal should be less than 120/70. She still has vague nausea, mild dizziness when she turns her head. We determined that her left eyelid droop is chronic. Is been present in photos going back 5 years. She no longer has a facial droop. No dysarthria. Qikhie-og-juun is normal. Blood pressure is 126/67. Heart rate 88. Respirations 14. 93% on room air. She is an alert oriented elderly female. 2 daughters and her at the bedside. Many questions were asked and answered. Lungs were clear. Regular rate and rhythm. Greater than 30 minutes was spent coordinating discharge, and answering their extensive questions. I would like for her to be followed up for blood pressure and cholesterol with her PCP. I have ordered outpatient PT and OT. - ALLERGIES Allergies/Adverse Reactions: Allergies Allergy/AdvReac Type Severity Reaction Status Date / Time No Known Drug Allergies Allergy Verified 06/01/22 13:46 - MEDICATIONS Home Medications: Ambulatory Orders Medication Instructions Recorded Confirmed Ascorbic Acid [Vitamin C] 1,000 mg PO DAILY 10/19/19 06/02/22 Multivitamin [Multiple Vitamins] 1 tab PO DAILY 10/19/19 06/02/22 Calcium Carbonate [Calcium] 600 mg PO BID 06/02/22 06/02/22 Cholecalciferol (Vitamin D3) 50 mcg PO DAILY 06/02/22 06/02/22 [Vitamin D3] Dextran/Hypromellose/Glycerin 1 drops EACHEYE BID PRN 06/02/22 06/02/22 [Genteal Tears 0.1%-0.2%-0.3%] Aspirin [[place] Aspirin] 81 mg PO DAILY #100 ea 06/03/22 Atorvastatin [Lipitor] 80 mg PO QPM #60 tab 06/03/22 Meclizine [Antivert] 12.5 mg PO Q6HR PRN #30 tab 06/03/22 ONDANSETRON ODT Prepack 2 [ZOFRAN 4 mg TL Q6H #30 tablet 06/03/22 ODT Prepack 2] - LABS Result Diagrams: 06/01/22 13:56 06/02/22 04:44"
== END 2022-06-03 14:30 | disposition home or self-care (01) | DRG 65 ==
LOC: EDUNIT# → ED 13:30 → ICU 14:38 → OBSVTOIN 06-02 14:11
PROVIDERS: ADMIT Internal Medicine; ATTEND Specialist
DX: G45.9 Transient cerebral ischemic attack, unspecified (principal); I63.9 Cerebral infarction, unspecified; E87.1 Hypo-osmolality and hyponatremia; G81.94 Hemiplegia, unspecified affecting left nondominant side; R29.810 Facial weakness; H53.8 Other visual disturbances; I10 Essential (primary) hypertension; H81.09 Meniere's disease, unspecified ear; R00.1 Bradycardia, unspecified; E78.00 Pure hypercholesterolemia, unspecified; H02.402 Unspecified ptosis of left eyelid; R11.2 Nausea with vomiting, unspecified
CPT/HCPCS: 36415; 70450; 70496; 70498; 70551; 80048; 80053; 80061; 82330; 83690; 83735; 84100; 85025; 85610; 87150; 93005; 93306; 96374; 96375; 97116; 97162; 97164; 97165; 99285; A9270; G0378; Q9967; 83721

== ENCOUNTER 2022-07-07 12:40 | Outpatient (CLI) | payer MEDICARE, OTHER ==
--- NOTE | 2022-07-07 20:07 | XRAY Report ---
PROCEDURE: Chest 2 View X-Ray INDICATIONS: HYPOXIA TECHNIQUE: 2 views of the chest were acquired. COMPARISON: 06/19/2017 FINDINGS: Surgical changes and devices: None. Lungs and pleura: No pleural effusions or pneumothorax. Redemonstrated platelike opacity left lung b ase, likely scarring. Additional streaky opacities also present at the left lung base not definitivel y present previously. Mediastinum: Mediastinal contours appear normal. Heart size is normal. Bones and chest wall: No suspicious bony lesions. Overlying soft tissues appear unremarkable. IMPRESSION: Minimal streaky opacity is present at the left lung base, likely atelectasis and/or scarring, aspirat ion or pneumonia are difficult to fully exclude Reviewed by: Dariel Roca MD on 07/07/2022 8:05 PM PDT Approved by: Dariel Roca MD on 07/07/2022 8:05 PM PDT Station ID: [id number]
== END 2022-07-07 12:41 | disposition home or self-care (01) ==
LOC: DI.S 12:40
PROVIDERS: ATTEND Registered Nurse
DX: R09.02 Hypoxemia (principal); R91.8 Other nonspecific abnormal finding of lung field

== ENCOUNTER 2022-07-11 10:51 | Outpatient (CLI) | payer MEDICARE, OTHER ==
--- NOTE | 2022-07-11 14:38 | CT Report ---
PROCEDURE: CHEST WO INDICATIONS: HYPOXIA TECHNIQUE: Noncontrast 1mm axial images were acquired from the pulmonary apices to the posterior costophrenic an gles. Axial 5 mm soft tissue kernel reconstructions were performed as well as 8 mm axial MIP and cor onal and sagittal 5 mm reformations. For radiation dose reduction, the following was used: automate d exposure control, adjustment of mA and/or kV according to patient size. COMPARISON: Radiograph 07/07/2022 FINDINGS: Image quality: Excellent. Lungs and pleura: No consolidation. No pleural effusions. No pneumothorax. No suspicious pulmonary n odules which require follow up. 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 Pleural parenchymal band within the lung bases. Mediastinum: Heart size is normal. No pericardial effusions. No mediastinal adenopathy by size criter ia. No large vessel abnormality. Large hiatal hernia. Chest wall and lower neck: Thyroid is unremarkable. No axillary or supraclavicular adenopathy by size . Masslike lesion in the left breast measuring 2.2 cm (series 3, image 31). Bones: No aggressive osseous abnormality. Upper Abdomen: Cholelithiasis without wall thickening. IMPRESSION: Masslike lesion in the left breast measuring 2.2 cm. Alternatively, this could be asymmetric breast t issue. Recommend further workup at a diagnostic breast center. Large right pulmonary arteriovenous malformation. Pleural-parenchymal band within the lower bases, which are benign. Reviewed by: Celestino Rubi on 07/11/2022 2:36 PM PDT Approved by: Celestino Rubi on 07/11/2022 2:36 PM PDT Station ID: [id number]
== END 2022-07-11 10:52 | disposition home or self-care (01) ==
LOC: DI 10:51
PROVIDERS: ATTEND Registered Nurse
DX: R09.02 Hypoxemia (principal); R92.8 Other abnormal and inconclusive findings on diagnostic imaging of breast; Q25.72 Congenital pulmonary arteriovenous malformation

== ENCOUNTER 2022-12-23 10:54 | Outpatient (CLI) | payer MEDICARE, OTHER ==
--- NOTE | 2022-12-24 10:14 | Mammography Report ---
BILATERAL DIGITAL SCREENING MAMMOGRAM 3D/2D: 12/23/2022 CLINICAL: Routine screening. Routine screening. Comparison is made to exams dated: 11/18/2021 mammogram, 09/21/2019 mammogram, and 06/21/2018 mammogram - [facility]. There are scattered areas of fibroglandular density in both breasts (category b / 25%-50% glandular t issue). There are benign calcifications in both breasts. No significant masses, calcifications, or other findings are seen in either breast. There has been no significant interval change. IMPRESSION: BENIGN There is no mammographic evidence of malignancy. A 1 year screening mammogram is recommended. Based on the Tyrer Cuzick model (a risk assessment model) the patients lifetime risk is 2.6% and her 10 year risk is 0.0%. According to the ACR, ACS, and NCCN guidelines, an annual breast MRI exam mitzy g with mammogram is recommended if the patients lifetime risk is 20% or greater. This exam was interpreted at Station ID: [id number]. NOTE: For mammograms, a report in lay terms will be sent to the patient. Approximately 15% of breast malignancies will not be visualized mammographically. In the management of a palpable breast mass, a negative mammogram must not discourage biopsy of a clinically suspicious lesion. Electronically Signed By: John wilson/selvin:12/23/2022 12:36:59 letter sent: No_Letter ACR BI-RADS Category 2: Benign Finding(s) 3342F PARENCHYMAL PATTERN: (A) - The breast(s) demonstrate(s) scattered fibroglandular densities. BI-RADS CATEGORY: (2) - 2 Mammogram 20231224 1 year screening LATERALITY: (B)
== END 2022-12-23 10:55 | disposition home or self-care (01) ==
LOC: DI.S 10:54
PROVIDERS: ATTEND Registered Nurse
DX: Z12.31 Encounter for screening mammogram for malignant neoplasm of breast (principal); R92.323 Mammographic fibroglandular density, bilateral breasts

== ENCOUNTER 2023-11-19 10:41 | Outpatient (CLI) | payer MEDICARE, OTHER ==
--- NOTE | 2023-11-19 16:26 | CT Report ---
PROCEDURE: Chest WO INDICATIONS: ARTERIOVENOUS FISTULA OF PULMONARY VESSELS TECHNIQUE: A CT scan of the chest was performed. Intravenous contrast media was not administered. Images were re corded and evaluated at appropriate window settings. Reformats: axial MIP of the chest, coronal and s agittal. For radiation dose reduction, the following was used: automated exposure control, adjustment of mA and/or kV according to patient size. COMPARISON: CT 07/11/2022, mammogram 12/23/2022 FINDINGS: Image quality: Diagnostic. Chest wall and lower neck: No thyroid nodule which requires sonographic follow up. No axillary or sup raclavicular adenopathy by size. Asymmetric left breast tissue measuring 1.8 cm, stable from prior (s eries 14, image 23); this was seen on prior mammogram. Lungs and pleura: No consolidation. No pleural effusions. No pneumothorax. No suspicious pulmonary n odules which require follow up. Embolization coils within the right lower lobe, without abnormality. Mediastinum: Heart size is normal. No pericardial effusion. No large vessel abnormality. No mediastin al adenopathy by size criteria. Moderate hiatal hernia. Bones: No aggressive osseous abnormality. Upper Abdomen: Cholelithiasis without wall thickening. IMPRESSION: Stable embolization coils in the right lower lobe. Resolved right pulmonary arteriovenous malformatio n. Stable asymmetric left breast density. Large hiatal hernia. Cholelithiasis without evidence of acute cholecystitis. Reviewed by: Celestino Rubi MD on 11/19/2023 4:25 PM PDT Approved by: Celestino Rubi MD on 11/19/2023 4:25 PM PDT Station ID: [id number]
== END 2023-11-19 10:42 | disposition home or self-care (01) ==
LOC: DI 10:41
PROVIDERS: ATTEND Radiology Vascular & Interventional Radiology
DX: K44.9 Diaphragmatic hernia without obstruction or gangrene (principal); K80.20 Calculus of gallbladder without cholecystitis without obstruction; Z96.89 Presence of other specified functional implants